=== PATIENT | female | born 1980 | race Caucasian/White ===

== ENCOUNTER 2018-03-07 18:57 | Emergency (ER) | payer OTHER ==
[2018-03-07 19:29] VITALS: TEMP 98.3
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
[2018-03-07] MEDS ORDERED: clonazePAM 1 MG TAB PO STA (21:01)
[2018-03-07] MEDS ORDERED: KETOROLAC 30 MG/ML 1 ML VIAL IM STA (21:28)
[2018-03-07] MEDS ORDERED: cloNIDine HCL 0.1 MG TAB PO STA (21:28)
[2018-03-07 22:19] VITALS: BP 150/101; PULSE 101; RESP 20
== END 2018-03-07 23:31 | disposition home or self-care (01) ==
LOC: EC 18:57
DX: Z76.0 Encounter for issue of repeat prescription (principal); R51 Headache; E11.9 Type 2 diabetes mellitus without complications; F41.9 Anxiety disorder, unspecified; F17.200 Nicotine dependence, unspecified, uncomplicated; Z79.4 Long term (current) use of insulin; Z79.899 Other long term (current) drug therapy; Z88.5 Allergy status to narcotic agent; Z88.8 Allergy status to other drugs, medicaments and biological substances
CPT/HCPCS: 99281; 96372; J1885